=== PATIENT | male | born 2000 | race African-American/Black ===

== ENCOUNTER 2021-07-19 17:29 | Emergency (ER) | payer SELFPAY ==
[2021-07-20 17:56] LABS: SARS-CoV-2 PCR by NAA Not Detected (NotDetected)
== END 2021-07-19 19:51 | disposition home or self-care (01) ==
LOC: CSHERS 17:29
DX: B34.9 Viral infection, unspecified (principal); Z20.822 Contact with and (suspected) exposure to COVID-19
CPT/HCPCS: 99283; U0003; U0005